=== PATIENT | male | born 1935 | race Caucasian/White ===

== ENCOUNTER 2017-07-16 08:20 | Inpatient (IN) | payer MEDICARE, OTHER ==
[2017-07-18] MEDS ORDERED: LEVOTHYROXINE50 MCG PO (14:40)
[2017-07-18] MEDS ORDERED: DONEPEZIL HCL10 MG PO (14:40)
[2017-07-18] MEDS ORDERED: LUTEIN20 MG PO (14:41)
[2017-07-18] MEDS ORDERED: COLACE-DPS100 MG PO (14:41)
[2017-07-18] MEDS ORDERED: CARDURA DPS8 MG PO (14:41)
[2017-07-18] MEDS ORDERED: LIPITOR DPS20 MG PO (14:41)
[2017-07-18] MEDS ORDERED: DAILY MULTIPLE1 EAC1 PO (14:41)
[2017-07-18] MEDS ORDERED: FEOSOL-DPS325 MG PO (14:42)
== END 2017-07-17 14:15 | disposition home or self-care (01) | DRG 378 ==
DX: K92.1 Melena (principal); D62 Acute posthemorrhagic anemia; I10 Essential (primary) hypertension; Z98.890 Other specified postprocedural states